=== PATIENT | female | born 1970 | race Caucasian/White ===

== ENCOUNTER → 2018-11-30 15:02 | Outpatient (CLI) | payer OTHER ==
[2018-11-30 17:39] LABS: BASOPHILS 1.4 % (0-2); EOSINOPHILS 7.6 % (0-7); HEMATOCRIT 42.8 % (36.0-48.0); HEMOGLOBIN 14.5 g/dL (12-16); IMMATURE GRANULOCYTES 0.2 % (0-5); LYMPHOCYTES 17.4 % (15-50); MCH 29.5 pg (26.0-34.0); MCHC 33.9 g/dL (31.0-37.0); MEAN PLATELET VOLUME 10.6 fL (7.4-10.4); NEUTROPHILS 66.4 % (40-80); PLATELET COUNT 323 10x3/uL (130-400); RBC 4.92 10x6/uL (4.00-5.40); RDW 13.7 % (11.5-14.5); WBC 9.1 10x3/uL (4.8-10.8)
== END | disposition home or self-care (01) ==
LOC: D.LABREF 15:02
PROVIDERS: Internal Medicine Pulmonary Disease
DX: J45.909 Unspecified asthma, uncomplicated (principal)

== ENCOUNTER → 2018-12-14 09:23 | Outpatient (CLI) | payer OTHER | END | disposition home or self-care (01) | LOC: D.CT 12-07 08:37 | DX: R91.1 Solitary pulmonary nodule (principal) ==

== ENCOUNTER → 2019-01-19 12:47 | Outpatient (CLI) | payer OTHER ==
[2019-01-24 18:08] LABS: AEROBE ID Final report (())
== END | disposition home or self-care (01) ==
LOC: D.LABREF 12:47
PROVIDERS: ATTEND Otolaryngology
DX: J32.0 Chronic maxillary sinusitis (principal)

== ENCOUNTER → 2019-01-26 13:50 | Outpatient (CLI) | payer OTHER | END | disposition home or self-care (01) | LOC: D.RT 13:50 | PROVIDERS: ATTEND Internal Medicine Pulmonary Disease | DX: J45.909 Unspecified asthma, uncomplicated (principal) ==

== ENCOUNTER → 2020-01-19 10:15 | Outpatient (CLI) | payer OTHER | END | disposition home or self-care (01) | LOC: D.CT 11-25 08:30 | PROVIDERS: ATTEND Internal Medicine Pulmonary Disease | DX: R91.1 Solitary pulmonary nodule (principal) ==

== ENCOUNTER → 2020-02-14 12:25 | Outpatient (CLI) | payer OTHER ==
[2020-02-14 12:58] LABS: BASOPHILS 0.2 % (0-2); EOSINOPHILS 0 % (0-7); HEMATOCRIT 43.1 % (36.0-48.0); IMMATURE GRANULOCYTES 0.2 % (0-5); LYMPHOCYTES 26.1 % (15-50); MCH 29.2 pg (26.0-34.0); MCHC 32.5 g/dL (31.0-37.0); MEAN PLATELET VOLUME 10.6 fL (7.4-10.4); MONOCYTES 7.1 % (2-11); NEUTROPHILS 66.4 % (40-80); PLATELET COUNT 355 10x3/uL (130-400); RBC 4.79 10x6/uL (4.00-5.40); RDW 13.4 % (11.5-14.5)
== END | disposition home or self-care (01) ==
LOC: D.LABREF 12:25
DX: J45.50 Severe persistent asthma, uncomplicated (principal)